=== PATIENT | male | born 1975 | race Caucasian/White ===

== ENCOUNTER 2017-09-27 10:57 | Day surgery (SDC) | payer OTHER ==
[2017-09-24 09:57] VITALS: BMI 28.5
[2017-09-27 11:34] VITALS: TEMP 98.5
[2017-09-27] MEDS ORDERED: MIDAZOLAM 2 MG/2 ML VIAL ONE (12:02)
[2017-09-27] MEDS ORDERED: fentaNYL (PF) 50 MCG/ML 2 ML AMP ONE (12:02)
[2017-09-27] MEDS ORDERED: IV FLUID CONTINUATION 1,000 ML IV ONE (12:07)
[2017-09-27] MEDS: BENZOCAINE SPRAY 1 CAN MUCOUS MEM ONE ×2 (12:12→12:28)
[2017-09-27] MEDS ORDERED: MIDAZOLAM 2 MG/2 ML VIAL IV ONE (12:30)
[2017-09-27] MEDS ORDERED: fentaNYL (PF) 50 MCG/ML 2 ML AMP IV ONE (12:31)
[2017-09-27] MEDS: MIDAZOLAM 2 MG/2 ML VIAL IV ONE ×2 (12:34→12:37)
[2017-09-27 12:53] VITALS: PULSE 78; RESP 14
[2017-09-27] MEDS ORDERED: SODIUM CHLORIDE 0.9% 1,000 ML IV SCH (13:00)
--- NOTE | 2017-09-27 13:30 | ECHOT ---
TRANSESOPHAGEAL ECHOCARDIOGRAM This transesophageal echocardiogram was performed to evaluate the aortic valve. The patient was given intravenous sedation with Versed and fentanyl and transesophageal echocardiogram was performed without any complications. Moderate sedation was used. Total sedation time is 15 minutes. FINDINGS: Left ventricular chamber is normal in size with normal left ventricular systolic function. Left atrium is normal in size. Left atrial appendage is normal. Right ventricle and right atrial chamber are normal in size. The mitral valve morphology is normal. The aortic valve is mildly thickened and it is a bicuspid aortic valve with doming of the aortic leaflet noted. There is a eccentric mild aortic regurgitation noted. There is trace mitral regurgitation and tricuspid regurgitation is noted. Aortic root measures 3.9 cm. Interatrial septum is intact. There is no evidence of any PFO by saline contrast study. Descending thoracic aorta is normal. FINAL IMPRESSION: 1. There is evidence of bicuspid aortic valve with normal opening. There is a mild degree of eccentric aortic regurgitation noted. 2. Aortic root is at the upper limit of normal and measures 3.9 cm. 3. Mitral tricuspid valve morphology is normal. 4. Left ventricular systolic function is normal. 5. Interatrial septum is intact. There is no evidence of any patent foramen ovale. MMODL / IJN: [id number] /
[2017-09-27 14:09] VITALS: BP 127/68
== END 2017-09-27 14:00 | disposition home or self-care (01) ==
LOC: CATHCVL 10:57
PROVIDERS: ATTEND Internal Medicine Cardiovascular Disease
DX: Q23.1 Congenital insufficiency of aortic valve (principal); R07.89 Other chest pain; Z79.82 Long term (current) use of aspirin; Z79.899 Other long term (current) drug therapy; Z87.891 Personal history of nicotine dependence
CPT/HCPCS: 93312; 93320; 93325; J2250; J3010

== ENCOUNTER → 2017-11-11 | Outpatient (CLI) | payer OTHER ==
--- NOTE | 2017-11-12 08:48 | CT ---
EXAMINATION TYPE: CT angio thoracic/abd aorta DATE OF EXAM: 11/11/2017 COMPARISON: NONE HISTORY: Bicuspid aortic valve recheck. CT DLP: 481.1 mGycm CONTRAST: CTA thoracic and abdominal aorta with 3-D reconstruction is performed and with IV Contrast, patient i njected with 100 mL of Omnipaque 350. Contrast CTA of the thoracic and abdominal aorta was performed from the lung apex through the base of the pelvis. 3-D reconstruction imaging obtained at a separate workstation. CT Chest: THORACIC AORTA: There is no evidence for aneurysm. Ascending thoracic aorta is ectatic at 3.9 cm AP dimension. Ascending thoracic aorta is of normal caliber with maximal AP dimension of 2.5 cm. No diss ection or mediastinal hematoma. Mild atheromatous changes are seen. LUNGS: The lungs are clear and free of infiltrate or atelectasis. No pulmonary nodule or mass is det ected. No pleural effusion or CT evidence of interstitial lung disease. MEDIASTINUM: The heart is not enlarged. No evidence for mediastinal mass or adenopathy. HILAR STRUCTURES: No evidence for mass. No hilar adenopathy is appreciated. OTHER: No significant abnormality. CONTRAST CT ABDOMEN AND PELVIS ABDOMINAL AORTA: No evidence for abdominal aortic aneurysm. Maximal AP dimension of the abdominal aor ta is 2.1 cm. Branch vessels are patent. No dissection. Iliac vessels are symmetric and patent. LIVER/GB- No significant abnormality is seen. PANCREAS- No significant abnormality is seen. SPLEEN- No significant abnormality is seen. ADRENALS- No significant abnormality is seen. KIDNEYS/BLADDER- No significant abnormality is seen. BOWEL- No Significant abnormality . Small sliding-type hiatal hernia noted. GENITAL ORGANS: No gross abnormality seen. LYMPH NODES- No greater than 1cm abdominal or pelvic lymph nodes are appreciated. OSSEOUS STRUCTURES- No significant abnormality is seen. OTHER- No significant abnormality is seen. IMPRESSION- 1. Ectasia of the ascending thoracic aorta without evidence for aneurysm.
== END | disposition home or self-care (01) ==
LOC: RADCTMAIN 15:21
PROVIDERS: ATTEND Internal Medicine Interventional Cardiology
DX: I77.810 Thoracic aortic ectasia (principal); Q23.1 Congenital insufficiency of aortic valve; E78.5 Hyperlipidemia, unspecified
CPT/HCPCS: 75635; 71275; Q9967

== ENCOUNTER 2018-06-25 11:27 | Emergency (ER) | payer OTHER ==
[2018-06-25 11:43] VITALS: BP 116/71; PULSE 79; RESP 18; TEMP 98.2
[2018-06-25] MEDS ORDERED: HYDROcodone/APAP 5-325MG 1 EACH TAB PO STA (12:08)
--- NOTE | 2018-06-25 12:14 | ED ---
Upper Extremity HPI - General Chief Complaint: Extremity Injury, Upper Stated Complaint: Collarbone Pin Time Seen by Provider: 06/25/18 12:02 Source: patient Mode of arrival: ambulatory Limitations: no limitations - History of Present Illness Initial Comments: This a 42-year-old male who denies past medical history presenting today for chief complaint of left shoulder pain. Patient states that about an hour prior to arrival he was taking a car off the [employer] working under it, as he was slowly landing on the car he states he did not clear and the cars weight came down on the left shoulder. Patient states that this car was guided and it was very light. There is no engine. However patient didn't know a crack and left collarbone. Patient states that he has had previous collarbone fractures and this feels similar. Patient denies any pain in the anterior shoulder and arm wrist or hand, he denies any injury to the head, chest, scapula or back. Patient denies any shortness of breath or pain with inspiration at this time. Patient's pain right now is a 4 out of 10 localized to the left collarbone without radiation. Patient denies any numbness, tingling, loss of sensation, coolness or color change of the extremity. Patient does admit to pain with range of motion of left shoulder. However he states he has full range motion at the elbow and wrist. There are no signs of wrist drop. VS stable upon arrival pt denies any additional complaints. - Related Data Home Medications Medication Instructions Recorded Confirmed Ibuprofen [Motrin] 800 mg PO Q8H PRN 08/30/17 09/27/17 Aspirin 81 mg PO DAILY 09/24/17 09/24/17 Atorvastatin [Lipitor] 20 mg PO DAILY 09/24/17 09/24/17 Metoprolol Tartrate [Lopressor] 12.5 mg PO DAILY 09/24/17 09/24/17 Allergies Allergy/AdvReac Type Severity Reaction Status Date / Time No Known Allergies Allergy Verified 06/25/18 11:45 Review of Systems ROS Statement: Those systems with pertinent positive or pertinent negative responses have been documented in the HPI. ROS Other: All systems not noted in ROS Statement are negative. Constitutional: Denies: fever, chills Eyes: Denies: eye pain, vision change ENT: Denies: ear pain, throat pain Respiratory: Denies: cough, dyspnea, wheezes, hemoptysis, stridor Cardiovascular: Denies: chest pain, palpitations Endocrine: Denies: fatigue Gastrointestinal: Denies: abdominal pain, nausea, vomiting, diarrhea, constipation Genitourinary: Denies: urgency, dysuria Musculoskeletal: Reports: arthralgia. Denies: joint swelling Skin: Denies: rash, lesions Neurological: Denies: headache, weakness, numbness, paresthesias, confusion, abnormal gait Past Medical History Past Medical History: Chest Pain / Angina, GERD/Reflux Additional Past Medical History / Comment(s): sob History of Any Multi-Drug Resistant Organisms: None Reported Past Surgical History: No Surgical Hx Reported Past Anesthesia/Blood Transfusion Reactions: No Reported Reaction Additional Past Anesthesia/Blood Transfusion Reaction / Comment(s): never has had anesthesia Past Psychological History: ADD/ADHD Smoking Status: Former smoker - Past Family History Mother Family Medical History: Cancer Additional Family Medical History / Comment(s): lung Brother(s) Family Medical History: Deep Vein Thrombosis (DVT) Father Family Medical History: Deep Vein Thrombosis (DVT) General Exam - General Exam Comments Initial Comments: General: The patient is awake and alert, in no distress, and does not appear acutely ill. Eye: Pupils are equal, round and reactive to light, extra-ocular movements are intact. No nystagmus. There is normal conjunctiva bilaterally. No signs of icterus. Ears, nose, mouth and throat: There are moist mucous membranes and no oral lesions. Cardiovascular: There is a regular rate and rhythm. No murmur, rub or gallop is appreciated. Respiratory: Lungs are clear to auscultation, respirations are non-labored, breath sounds are equal. No wheezes, stridor, rales, or rhonchi. Musculoskeletal: Upon inspection there are no obvious deformities or palpable defects of the clavicle or shoulder joints b/l. Patient denies any tenderness to palpation of the upper the scapula, sternum, posterior shoulder along the length of the humerus or at the elbow. Patient does admit to pain to palpation over the before meals joint. Positive AC cross testing of the left side. No evidence of crepitus no tenderness. Strength 5/5 with all movements of shoulder joint including rotation, forward flexion and hyperextension. (+) Neer left side. Sensation intact of the UE equally b/l-no badge parathesias. Pt is able to make the OK, fingers crossed, stop signs and thumbs up- median, ulnar and radial nerve intact. There is no signs wrist drop. Radial pulses equal bilaterally 2+. Neurological: A&O x 3. CN II-XII intact, There are no obvious motor or sensory deficits. Coordination appears grossly intact. Speech is normal. Skin: Skin is warm and dry and no rashes or lesions are noted. Psychiatric: Cooperative, appropriate mood & affect, normal judgment. Limitations: no limitations Course Vital Signs 06/25/18 11:41 Temperature 98.2 F Pulse Rate 79 Respiratory 18 Rate Blood Pressure 116/71 O2 Sat by Pulse 97 Oximetry Medical Decision Making - Medical Decision Making X-ray revealed no acute dislocation or fracture. Bilateral AC joint imaging revealed no widening. There was noted OA of the AC joint, an area where pt complained of pain to palpation on PE. Patient neurovascularly intact upon examination. The lung link visible in radiological imaging appear within normal limits, patient denies any shortness of breath. Patient placed in a sling. Patient given follow-up with primary care provider one to 2 days, and orthopedic surgery if symptoms persist for greater than 1 week. Patient was instructed to take [id number] ibuprofen and Tylenol for pain management as needed. As well as apply ice to the area and rest the left shoulder from activity for the next 2-3 days. Case is discussed with Dr. Galicia who agrees with plan. She discharged in stable condition. Disposition Clinical Impression: Acute pain of left shoulder, Injury of left shoulder Disposition: HOME SELF-CARE Condition: Good Instructions: Shoulder Pain (ED) Additional Instructions: Please use over the counter medication as discussed. Please follow-up with family doctor in the next 2 days of symptoms have not improved. Please follow- up with orthopedic surgery if symptoms persist for greater than 1 week. Please return to emergency room if the symptoms increase or worsen or for any other concerns. Is patient prescribed a controlled substance at d/c from ED?: No Referrals: None,Stated [Primary Care Provider] - 1-2 days Nabil Constantino MD [STAFF PHYSICIAN] - 1-2 days Time of Disposition: 12:47
--- NOTE | 2018-06-25 12:42 | XR ---
EXAMINATION TYPE: XR shoulder complete 3 views LT, XR clavicle 2 views LT DATE OF EXAM: 06/25/2018 COMPARISON: NONE HISTORY: 42-year-old male with pain after injury FINDINGS: Clavicle: No acute fracture seen. Shoulder: Mild degenerative changes at the AC joint with a marginal spurring. No acute fracture, subluxation, o r dislocation seen. Mild degenerative spurring from the inferior humeral head is noted. 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 No acute osseous abnormality seen.
--- NOTE | 2018-06-25 13:42 | XR ---
EXAMINATION TYPE: XR AC joint BILAT DATE OF EXAM: 06/25/2018 COMPARISON: Left shoulder and clavicle radiograph earlier today HISTORY: 42-year-old male pain after injury. Patient reports a prior right clavicle fracture. TECHNIQUE: 2 views on each side without and with weights. FINDINGS: There is mild degenerative spurring at the bilateral AC joints. Overall joint space appears maintaine d on both sides and there is no abnormal incongruence that develops with weights. No acute fracture s een. IMPRESSION: Mild bilateral AC joint OA. No abnormal widening or subluxation of the AC joints with weights.
== END 2018-06-25 13:56 | disposition home or self-care (01) ==
LOC: EC 11:27
DX: S49.92XA Unspecified injury of left shoulder and upper arm, initial encounter (principal); I20.9 Angina pectoris, unspecified; Z87.828 Personal history of other (healed) physical injury and trauma; Z87.891 Personal history of nicotine dependence; Z79.82 Long term (current) use of aspirin; Z79.899 Other long term (current) drug therapy; W20.8XXA Other cause of strike by thrown, projected or falling object, initial encounter; Y93.89 Activity, other specified
CPT/HCPCS: 73050; 99283